=== PATIENT | male | born 1935 | race Caucasian/White ===

== ENCOUNTER 2017-03-16 23:22 | Inpatient (IN) | payer MEDICARE ==
[2017-03-16] MEDS ORDERED: PIPERACILLIN/TAZOBACTAM 3.375 GM VIAL IV ONE (23:43)
[2017-03-16] MEDS ORDERED: VANCOMYCIN HCL INJ 1000 MG VIAL IV ONE (23:43)
[2017-03-16 23:45] LABS: HEMATOCRIT 38.1 % (37.9-51.0); HEMOGLOBIN 12.6 g/dL (13.5-17.0); HGB HCT DIFFERENCE -0.3; MEAN CORPUSCULAR HEMOGLOBIN 34.2 pg (27.0-33.4); MEAN CORPUSCULAR VOLUME 104 fl (80-97); RED BLOOD COUNT 3.68 10^6/uL (4.35-5.55); RED CELL DISTRIBUTION WIDTH 14.1 % (11.5-14.0); WHITE BLOOD COUNT 4.4 10^3/uL (4.0-10.5)
--- NOTE | 2017-03-16 23:46 | ER Document Report ---
ED General - General Stated Complaint: RESPIRATORY DISTRESS Time Seen by Provider: 03/16/17 23:34 TRAVEL OUTSIDE OF THE [place] IN LAST 30 DAYS: No - Related Data Allergies/Adverse Reactions: No Known Allergies Allergy (Verified 08/22/16 13:29) Past Medical History - Social History Smoking Status: Unknown if Ever Smoked Frequency of alcohol use: None Drug Abuse: None Family History: None - Past Medical History Cardiac Medical History: Reports: Hx Hypertension Pulmonary Medical History: Reports: Hx Pneumonia - aspiration Denies: Hx Tuberculosis Neurological Medical History: Reports: Hx Cerebrovascular Accident - 2, rt weakness Psychiatric Medical History: Reports: Hx Depression Past Surgical History: Reports: Hx Orthopedic Surgery. Denies: Hx Pacemaker - Immunizations Hx Diphtheria, Pertussis, Tetanus Vaccination: Yes Hx Pneumococcal Vaccination: 10/07/13 Physical Exam - Vital signs Vitals: Resp Pulse Ox 42 H 70 L 03/16/17 23:23 03/16/17 23:23 Course - Re-evaluation Re-evalutation: 03/16/17 23:44 Patient has what appears to be severe pneumonia on chest x-ray. He has a previous history of aspiration. At baseline is nonverbal due to previous history of strokes and is bedridden. Family is at bedside. Patient's daughter as well as the patient's . I did talk to him at length. Patient's oxygen saturation is 70s and 80s on BiPAP. I informed him that he most likely will not survive long on BiPAP be that his oxygen saturations are poor. Informed him the only option of intubation. I talked to them at length about intubation. I discussed with them about the possibility that the patient may not do well on the ventilator and could potentially not able to come off the ventilator. I I also discussed informed him that the patient could potentially survive this however it is less likely. I did inform them once being placed on ventilator was in the procedure that is involved with it. I did explain to him that this is a life-support type of care. I asked him if this is what the patient would want a long run being that his health is already poor. At this time they do not want to go forth with intubation yet they have not completely ruled out. They are talking to other family members before making a final decision. 03/17/17 00:17 Oxygenation is started to improve. He is now in the 90s. Family still not made up her mind if they want intubation if he needs in the future. - Vital Signs Vital signs: Temp Pulse Resp BP Pulse Ox 97.4 F 79 34 H 98/57 L 100 03/17/17 01:05 03/16/17 23:57 03/17/17 01:05 03/17/17 01:05 03/17/17 01:05 - Laboratory Result Diagrams: 03/16/17 23:30 03/16/17 23:30 Laboratory results interpreted by me: 03/16/17 03/16/17 03/16/17 23:30 23:30 23:30 RBC 3.68 L Hgb 12.6 L MCV 104 H MCH 34.2 H RDW 14.1 H Seg Neuts % (Manual) 37 L Band Neutrophils % 10 H Lymphocytes % (Manual) 48 H Monocytes % (Manual) 1 L Abs Monocytes (Manual) 0.0 L VBG pH Potassium 3.5 L Carbon Dioxide 21 L BUN 36 H Est GFR (Non-Af Amer) 58 L Glucose 196 H Lactic Acid 10.7 H Creatine Kinase Albumin 3.1 L 03/16/17 03/16/17 23:30 23:30 RBC Hgb MCV MCH RDW Seg Neuts % (Manual) Band Neutrophils % Lymphocytes % (Manual) Monocytes % (Manual) Abs Monocytes (Manual) VBG pH 7.24 L Potassium Carbon Dioxide BUN Est GFR (Non-Af Amer) Glucose Lactic Acid Creatine Kinase 173 H Albumin - EKG Interpretation by Me Additional EKG results interpreted by me: 03/17/17 01:07 She is reviewed and interpreted by me. EKG shows normal sinus rhythm with a rate of [address] segment elevation or depression. No ischemic T-wave inversions. NV interval, QRS duration are within normal range. QTc interval is prolonged. - Transfer of Care Notes: 03/17/17 01:35 I continue to have further conversations with the family. His blood pressure has remained and wears from the high 80s systolic to the low 100s. Family says at home his blood pressures usually in the low 100s systolically. He is very thin and I expect his blood pressure does run low however I do think it is running lower than normal due to his underlying illness. Suspect pneumonia based on chest x-ray. He does have a very high lactic acidosis. I informed the family that this suggests that he will not have a good outcome in the long run. His mean arterial pressure has remained above 65 since starting IV fluids. I did inform the family that if his blood pressure continues to drop he may eventually need pressor therapy to keep his blood pressure. I explained to him that this would require central line and explained procedure to them. I did explain to them that this is an invasive procedure. Family still unsure if they would want this done. They will not give me a yes or no answer as to whether they would want this performed if the patient does require it in the future. The still is not sure if she would want the patient intubated in the future or not if he were to require it. Dictation of this chart was performed using voice recognition software; therefore, there may be some unintended grammatical errors. 03/17/17 01:36 Critical Care Note - Critical Care Note Total time excluding time spent on procedures (mins): 45 Comments: Total Critical CARE time spent with patient not including time spent on procedures approximately 45 minutes due to frequent re-evaluations, management of hypoxemia, management of hypotension, discussion with family. Discharge - Discharge Clinical Impression: Metabolic acidosis Pneumonia Qualifiers: Pneumonia type: due to unspecified organism Laterality: bilateral Lung location : lower lobe of lung Qualified Code(s): J18.9 - Pneumonia, unspecified organism Condition: Stable Disposition: ADMITTED INPATIENT Admitting Provider: Hospitalist Unit Admitted: [facility]
[2017-03-16 23:54] LABS: ALANINE AMINOTRANSFERASE 31 U/L (21-72); ALBUMIN 3.1 g/dL (3.5-5.0); ALKALINE PHOSPHATASE 69 U/L (38-126); ANION GAP 19 (5-19); ASPARTATE AMINO TRANSFERASE 45 U/L (17-59); BILIRUBIN,DIRECT 0.2 mg/dL (0.0-0.4); BILIRUBIN,TOTAL 0.5 mg/dL (0.2-1.3); BLOOD UREA NITROGEN 36 mg/dL (7-20); CALCIUM 8.7 mg/dL (8.4-10.2); CARBON DIOXIDE 21 mmol/L (22-30); CHLORIDE 102 mmol/L (98-107); CREATININE RESULT 1.21 mg/dL (0.52-1.25); GLUCOSE 196 mg/dL (75-110); POTASSIUM 3.5 mmol/L (3.6-5.0); SODIUM 141.7 mmol/L (137-145); TOTAL PROTEIN 6.3 g/dL (6.3-8.2)
--- NOTE | 2017-03-17 | RADIOLOGY REPORT (SQ) ---
EXAM DESCRIPTION: CHEST SINGLE VIEW COMPLETED DATE/TIME: 03/16/2017 11:48 pm REASON FOR STUDY: dyspnea COMPARISON: 05/16/2016 EXAM PARAMETERS: NUMBER OF VIEWS: One view. TECHNIQUE: Single frontal radiographic view of the chest acquired. RADIATION DOSE: NA LIMITATIONS: The right costophrenic angle is not included in the field of view. FINDINGS: LUNGS AND PLEURA: Left greater than right perihilar mixed interstitial and airspace opacit ies, most significantly involving the left lower lobe. No pneumothorax. No large pleural effusion e vident. MEDIASTINUM AND HILAR STRUCTURES: No masses. Contour normal. HEART AND VASCULAR STRUCTURES: Heart normal in size. Normal vasculature. BONES: No acute findings. HARDWARE: None in the chest. OTHER: No other significant finding. IMPRESSION: Bilateral perihilar mixed interstitial and airspace opacities demonstrating an apical ba silar gradient in the setting of a normal cardiac silhouette. In the appropriate clinical setting, t his is most consistent with bacterial versus atypical pneumonia. Pulmonary hemorrhage or pulmonary e aden may have a similar appearance. TECHNICAL DOCUMENTATION: JOB ID: [id number]
[2017-03-17 00:14] LABS: BAND NEUTROPHILS % (MANUAL) 10 % (3-5); BASOPHILS % (MANUAL) 0 % (0-2); EOSINOPHILS % (MANUAL) 2 % (0-6); LYMPHOCYTES % (MANUAL) 48 % (13-45); TOTAL CELLS COUNTED 100
[2017-03-17] MEDS ORDERED: NORMAL SALINE 1000 ML 1,000 ML IV PRN (00:17)
[2017-03-17 00:18] LABS: ANISOCYTOSIS SLIGHT; OVALOCYTES SLIGHT; PLATELET CLUMPS PRESENT; POIKILOCYTOSIS 1+
[2017-03-17 00:23] LABS: VENOUS BLOOD BASE EXCESS -4.3 mmol/L; VENOUS BLOOD HCO3 23.8 mmol/L (20-32); VENOUS BLOOD PCO2 56.4 mmHg (35-63); VENOUS BLOOD PH 7.24 (7.30-7.42)
[2017-03-17 01:00] LABS: CREATINE KINASE MB 2.04 ng/mL (<4.55)
[2017-03-17 01:03] LABS: TROPONIN I < 0.012 ng/mL
[2017-03-17] MEDS ORDERED: ACETAMINOPHEN 325 MG TABLET PO PRN (01:34)
[2017-03-17] MEDS ORDERED: GUAIFENESIN SYRP 200 MG/10 ML UDC PO PRN (01:34)
[2017-03-17] MEDS ORDERED: NORMAL SALINE 1000 ML 1,000 ML IV ONE ×2 (01:34→16:10)
[2017-03-17] MEDS ORDERED: VANCOMYCIN HCL 0 MG in DEXTROSE 5%-WATER 250 ML IV NR (02:00)
[2017-03-17 02:30] LABS: MAGNESIUM 1.9 mg/dL (1.6-2.3); PHOSPHORUS 4.1 mg/dL (2.5-4.5)
[2017-03-17 02:40] LABS: ARTERIAL BLOOD BASE EXCESS -2.3 mmol/L; ARTERIAL BLOOD O2 SATURATION 98.3 % (94-98)
--- NOTE | 2017-03-17 03:36 | RADIOLOGY REPORT (SQ) ---
EXAM DESCRIPTION: ABDOMEN 2 VIEWS COMPLETED DATE/TIME: 03/17/2017 3:20 am REASON FOR STUDY: distension COMPARISON: 05/16/2016. Chest x-ray dated 03/16/2017. NUMBER OF VIEWS: Two views. TECHNIQUE: Supine and erect/decubitus radiographic images of the abdomen acquired. LIMITATIONS: None. FINDINGS: FREE AIR: None. No abnormal gas collections. LUNG BASES: Clear. BOWEL GAS PATTERN: Nonobstructive pattern. Diffuse gas throughout the small bowel and colon. Promin ent gas in the stomach. No dilated loops or air fluid levels. CALCIFICATIONS: No suspicious calcifications. SOFT TISSUES: No gross mass or suggestion of organomegaly. HARDWARE: None in the abdomen. BONES: No acute fracture. Degenerative changes in the spine with scoliosis. No worrisome bone lesio ns. OTHER: No other significant finding. IMPRESSION: GENERALIZED ILEUS. TECHNICAL DOCUMENTATION: JOB ID: [id number] [email or web address]- All Rights Reserved
--- NOTE | 2017-03-17 03:46 | PDOC H&P ---
History of Present Illness Admission Date/PCP: 03/17/17 01:34 HELENA THORPE MD Patient complains of: Altered mental status History of Present Illness: AMBROSE BELL is a 81 year old male with complex past medical history of cerebral palsy, CVA, recurrent aspiration pneumonia, dementia and bedbound state. He been in his usual state of health until approximately 6 hours prior to presentation having upper airway sounds concerning for aspiration and seizure -like activity. EMS found him unresponsive with a blood pressure of 64/46 with pulse oximetry in the 60s. In the emergency room he is found to have bilateral pneumonia, acute respiratory failure, metabolic acidosis he started on BiPAP, empiric antibiotics and IV fluids and referred to the hospitalist for admission. Patient's is at bedside verifying no aggressive measures with intubation, central line placement or pressors. Past Medical History Cardiac Medical History: Reports: Hypertension Pulmonary Medical History: Reports: Pneumonia - aspiration, Other - Recurrent aspiration Denies: Tuberculosis Musculoskeltal Medical History: Reports: Other - Profound debility and bedbound state Psychiatric Medical History: Reports: Dementia, Depression Past Surgical History Past Surgical History: Reports: Orthopedic Surgery Denies: Pacemaker Social History Information Source: Relative Lives with: Family Smoking Status: Unknown if Ever Smoked Frequency of Alcohol Use: None Hx Recreational Drug Use: No Drugs: None Hx Prescription Drug Abuse: No - Advance Directive Resuscitation Status: Do Not Resuscitate Family History Family History: CVA, Hypertension Parental Family History Reviewed: Yes Children Family History Reviewed: Yes Sibling(s) Family History Reviewed.: Yes Medication/Allergy Home Medications: Mirtazapine [Remeron] 15 mg PO DAILY 04/11/12 Omeprazole [Prilosec 20 mg Capsule] 20 mg PO DAILY 04/11/12 Simvastatin [Zocor 40 mg Tablet] 40 mg PO QHS 04/11/12 Rivaroxaban [Xarelto 10 mg Tablet] 20 mg PO DAILY 10/18/13 Tamsulosin HCl 1 tab PO DAILY 10/18/13 Losartan Potassium [Cozaar 50 mg Tablet] 50 mg PO DAILY 09/11/14 Levofloxacin [Levaquin 750 mg Tablet] 750 mg PO DAILY #10 tablet 05/19/16 Metronidazole [Flagyl 500 mg Tablet] 500 mg PO Q8 #40 tablet 05/19/16 Allergies/Adverse Reactions: No Known Allergies Allergy (Verified 08/22/16 13:29) Review of Systems ROS unobtainable: Due to mental status Physical Exam Vital Signs: Temp Pulse Resp BP Pulse Ox 98.6 F 79 28 H 97/65 L 92 03/17/17 02:40 03/16/17 23:57 03/17/17 02:40 03/17/17 02:40 03/17/17 02:40 General appearance: PRESENT: no acute distress, disheveled, thin, other - Cachexia with temporal wasting intermittent tracking, unable to follow commands. ABSENT: cooperative Head exam: PRESENT: atraumatic, normocephalic Eye exam: PRESENT: PERRLA, other - Pupils symmetric 2 mm and poorly responsive Ear exam: PRESENT: normal external ear exam Mouth exam: PRESENT: moist, tongue midline Neck exam: ABSENT: carotid bruit, JVD, lymphadenopathy, thyromegaly Respiratory exam: PRESENT: accessory muscle use, prolonged expiratory phas, rales, retraction, rhonchi, tachypnea. ABSENT: stridor Cardiovascular exam: PRESENT: RRR. ABSENT: diastolic murmur, rubs, systolic murmur Pulses: PRESENT: normal dorsalis pedis pul Vascular exam: PRESENT: normal capillary refill GI/Abdominal exam: PRESENT: diminished bowel sounds, distended, hypoactive bowel sounds. ABSENT: ascites, organolmegaly, rebound, rigid Rectal exam: PRESENT: deferred Extremities exam: PRESENT: other - Right sided atrophy and flexion contraction Neurological exam: PRESENT: altered Psychiatric exam: PRESENT: flat affect Skin exam: PRESENT: other - Stage II sacral decubiti Results Laboratory Results: 03/17/17 02:00 Carbonic Acid 1.36 H HCO3/H2CO3 Ratio 17:1 ABG pH 7.34 L ABG pCO2 45.3 H ABG pO2 126.2 H ABG HCO3 23.7 ABG O2 Saturation 98.3 H ABG Base Excess -2.3 FiO2 100% Impressions: Chest X-Ray 03/16/17 23:34 IMPRESSION: Bilateral perihilar mixed interstitial and airspace opacities demonstrating an apical basilar gradient in the setting of a normal cardiac silhouette. In the appropriate clinical setting, this is most consistent with bacterial versus atypical pneumonia. Pulmonary hemorrhage or pulmonary edema may have a similar appearance. Assessment & Plan - Diagnosis (1) Acidosis, metabolic, with respiratory acidosis Is this a current diagnosis for this admission?: YesPlan: Acute respiratory failure with septic shock. Treating underlying pneumonia and hypotension follow-up chemistry consider AV bicarb (2) Ileus Is this a current diagnosis for this admission?: YesPlan: Unclear duration no evidence of obstruction likely secondary to acute process consider NG tube if vomiting. (3) Hypoxia Is this a current diagnosis for this admission?: YesPlan: Secondary to pneumonia supplemental oxygen at 50% with BiPAP. (4) Hypotension Is this a current diagnosis for this admission?: YesPlan: Secondary to sepsis IV fluid challenge as needed patient is a DNR will avoid central line placement and or pressors given patient's chronic comorbidity and family wishes (5) Sepsis Is this a current diagnosis for this admission?: YesPlan: Secondary to pneumonia empiric antibiotics and IV fluid challenge. (6) Encephalopathy acute Is this a current diagnosis for this admission?: YesPlan: Complicated by dementia, seizure disorder and acute illness. Empiric treatment of acute illness resumption of valproic acid and supportive measures (7) Pneumonia Is this a current diagnosis for this admission?: YesPlan: Empiric antibiotics, albuterol and Atrovent, BiPAP. Follow-up CBC and cultures - Time Time Spent: 50 to 70 Minutes - Inpatient Certification Medical Necessity: Need Close Monitoring Due to Risk of Patient Decompensation
[2017-03-17] MEDS: IPRATROPIUM/ALBUTEROL 0.5-2.5 MG/3 ML AMPUL NEB SCH ×4 (04:08→20:06)
[2017-03-17 05:43] LABS: ANION GAP 9 (5-19); BLOOD UREA NITROGEN 36 mg/dL (7-20); CALCIUM 7.8 mg/dL (8.4-10.2); CARBON DIOXIDE 23 mmol/L (22-30); CHLORIDE 110 mmol/L (98-107); CREATINE KINASE 205 U/L (55-170); CREATININE RESULT 1.05 mg/dL (0.52-1.25); GLUCOSE 101 mg/dL (75-110); POTASSIUM 4.1 mmol/L (3.6-5.0); SODIUM 141.8 mmol/L (137-145)
[2017-03-17 05:50] LABS: CREATINE KINASE MB 2.59 ng/mL (<4.55)
[2017-03-17 05:59] LABS: TROPONIN I < 0.012 ng/mL
[2017-03-17] MEDS ORDERED: PIPERACILLIN SODIUM/TAZOBACTAM 4.5 GM in NORMAL SALINE 100 ML IV SCH (06:00)
[2017-03-17] MEDS ORDERED: PIPERACILLIN/TAZOBACTAM 4.5 GM VIAL IV ONE (06:17)
[2017-03-17 07:32] LABS: HEMATOCRIT 35.1 % (37.9-51.0); HEMOGLOBIN 11.7 g/dL (13.5-17.0); MEAN CORPUSCULAR HEMOGLOBIN 34.3 pg (27.0-33.4); MEAN CORPUSCULAR HGB CONC 33.5 g/dL (32.0-36.0); MEAN CORPUSCULAR VOLUME 103 fl (80-97); RED BLOOD COUNT 3.42 10^6/uL (4.35-5.55); RED CELL DISTRIBUTION WIDTH 13.9 % (11.5-14.0)
[2017-03-17 07:50] LABS: BASOPHILS % (MANUAL) 0 % (0-2); EOSINOPHILS % (MANUAL) 0 % (0-6); LYMPHOCYTES % (MANUAL) 34 % (13-45); TOTAL CELLS COUNTED 50
[2017-03-17 07:52] LABS: BAND NEUTROPHILS % (MANUAL) 18 % (3-5)
[2017-03-17 07:54] LABS: OVALOCYTES SLIGHT; POIKILOCYTOSIS SLIGHT; TEAR DROP CELLS SLIGHT
[2017-03-17] MEDS: AZITHROMYCIN 500 MG in DEXTROSE 5%-WATER 250 ML IV SCH (09:33)
[2017-03-17] MEDS: RIVAROXABAN 10 MG TABLET PO SCH (09:40)
--- NOTE | 2017-03-17 09:44 | RADIOLOGY REPORT (SQ) ---
EXAM DESCRIPTION: CHEST SINGLE VIEW COMPLETED DATE/TIME: 03/17/2017 9:34 am REASON FOR STUDY: pna COMPARISON: 03/16/2017 EXAM PARAMETERS: NUMBER OF VIEWS: One view. TECHNIQUE: Single frontal radiographic view of the chest acquired. RADIATION DOSE: NA LIMITATIONS: None. FINDINGS: LUNGS AND PLEURA: Slightly worsened multifocal airspace disease. Pleural spaces clear. MEDIASTINUM AND HILAR STRUCTURES: No masses. Contour normal. HEART AND VASCULAR STRUCTURES: Heart normal in size. Normal vasculature. BONES: No acute findings. HARDWARE: None in the chest. OTHER: No other significant finding. IMPRESSION: WORSENING MULTIFOCAL AIRSPACE DISEASE. TECHNICAL DOCUMENTATION: JOB ID: [id number]
[2017-03-17] MEDS ORDERED: LORAZEPAM INJ 2 MG/1 ML VIAL IV ONE (12:00)
[2017-03-17 12:24] LABS: CREATINE KINASE MB 5.14 ng/mL (<4.55)
[2017-03-17 12:30] LABS: TROPONIN I < 0.012 ng/mL
[2017-03-17] MEDS: PIPERACILLIN SODIUM/TAZOBACTAM 3.375 GM in NORMAL SALINE 100 ML IV SCH ×2 (12:55→18:16)
[2017-03-17] MEDS: NORMAL SALINE 1000 ML 1,000 ML IV PRN (12:55)
[2017-03-17] MEDS ORDERED: PHARMACY COMMUNICATION ORDER MC NR (13:15)
[2017-03-17 13:35] LABS: AMORPHOUS SEDIMENT,URINE TRACE /HPF; APPEARANCE,URINE CLOUDY; BILIRUBIN,URINE NEGATIVE (NEGATIVE); GLUCOSE, URINE NEGATIVE (NEGATIVE); KETONES,URINE NEGATIVE (NEGATIVE); LEUKOCYTE ESTERASE,URINE NEGATIVE (NEGATIVE); NITRITE,URINE NEGATIVE (NEGATIVE); PROTEIN,URINE 30 mg/dL (NEGATIVE); URINE SPECIFIC GRAVITY 1.038; UROBILINOGEN,URINE NEGATIVE mg/dL (<2.0)
[2017-03-17] MEDS: METHYLPREDNISOLONE INJ 40 MG/1 ML SDV IV SCH ×2 (15:33→21:16)
--- NOTE | 2017-03-17 17:37 | PDOC PROGRESS REPORT ---
Subjective Progress Note for:: 03/17/17 Subjective:: Patient is seen with nurse and at bedside. Patient is unable to give review of systems secondary to dementia. Physical Exam Vital Signs: Temp Pulse Resp BP Pulse Ox 98.9 F 90 32 H 93/58 L 90 L 03/17/17 04:14 03/17/17 07:00 03/17/17 04:15 03/17/17 04:14 03/17/17 04:15 Intake & Output 03/16/17 03/17/17 03/18/17 06:59 06:59 06:59 Intake Total 550 Output Total 300 Balance 250 Weight 50.7 kg Exam: GENERAL: Tachypnic, acutely ill appearing, moderate respiratory distress HEENT: temporal muscle wasting, Conjunctiva clear, nonicteric, dry mucous membranes, + JVD to chin, midline trachea, torticollis RESPIRATORY:Tachypnic, accessory muscle use, supraclavicular retractions, coarse bilaterally CARDIAC: Tachycardic, Regular rate and rhythm, no murmurs/gallops/rubs ABDOMEN: Soft, nondistended, nontender, positive bowel sounds, no rebound, no guarding EXTREMETIES: No cyanosis, clubbing or edema NEUROLOGIC: right arm contracted and right leg contracted, awake, muscle spasticity, SKIN: No rash, wounds PSYCH: unable to assess Results Laboratory Results: 03/17/17 05:09 03/17/17 05:09 03/17/17 03/17/17 03/17/17 02:00 05:09 05:09 WBC RBC Hgb Hct MCV MCH MCHC RDW Plt Count Seg Neutrophils % Lymphocytes % Monocytes % Eosinophils % Basophils % Absolute Neutrophils Absolute Lymphocytes Absolute Monocytes Absolute Eosinophils Absolute Basophils Carbonic Acid 1.36 H HCO3/H2CO3 Ratio 17:1 ABG pH 7.34 L ABG pCO2 45.3 H ABG pO2 126.2 H ABG HCO3 23.7 ABG O2 Saturation 98.3 H ABG Base Excess -2.3 FiO2 100% Sodium 141.8 Potassium 4.1 Chloride 110 H Carbon Dioxide 23 Anion Gap 9 BUN 36 H Creatinine 1.05 Est GFR ( Amer) > 60 Est GFR (Non-Af Amer) > 60 Glucose 101 Lactic Acid 3.3 H Calcium 7.8 L 03/17/17 05:09 WBC 2.0 L D RBC 3.42 L Hgb 11.7 L Hct 35.1 L MCV 103 H MCH 34.3 H MCHC 33.5 RDW 13.9 Plt Count 150 Seg Neutrophils % Not Reportable Lymphocytes % Not Reportable Monocytes % Not Reportable Eosinophils % Not Reportable Basophils % Not Reportable Absolute Neutrophils Not Reportable Absolute Lymphocytes Not Reportable Absolute Monocytes Not Reportable Absolute Eosinophils Not Reportable Absolute Basophils Not Reportable Carbonic Acid HCO3/H2CO3 Ratio ABG pH ABG pCO2 ABG pO2 ABG HCO3 ABG O2 Saturation ABG Base Excess FiO2 Sodium Potassium Chloride Carbon Dioxide Anion Gap BUN Creatinine Est GFR ( Amer) Est GFR (Non-Af Amer) Glucose Lactic Acid Calcium 03/17/17 03/17/17 05:09 05:09 Creatine Kinase 205 H CK-MB (CK-2) 2.59 Troponin I < 0.012 Impressions: Chest X-Ray 03/16/17 23:34 IMPRESSION: Bilateral perihilar mixed interstitial and airspace opacities demonstrating an apical basilar gradient in the setting of a normal cardiac silhouette. In the appropriate clinical setting, this is most consistent with bacterial versus atypical pneumonia. Pulmonary hemorrhage or pulmonary edema may have a similar appearance. Abdomen X-Ray 03/17/17 02:40 IMPRESSION: GENERALIZED ILEUS. Assessment & Plan - Diagnosis (1) Sepsis Qualifiers: Sepsis type: sepsis due to unspecified organism Qualified Code(s): A41.9 - Sepsis, unspecified organism Is this a current diagnosis for this admission?: YesPlan: Patient on Vancomycin, Zosyn, and Azithromycin. Pending cultures. (2) Pneumonia Qualifiers: Laterality: bilateral Lung location: unspecified part of lung Is this a current diagnosis for this admission?: YesPlan: Patient with multifocal pneumonia. Likely a gram negative pneumonia secondary to acute and chronic aspiration. Patient is on Bipap at F[facility] 70% sating 93% when I see him. Th (3) ARDS (adult respiratory distress syndrome) Is this a current diagnosis for this admission?: YesPlan: Patient meets criteria based on fluffy infiltrates in all lobes, PaO2/FiO2 ratio of 126 (moderate ards). While other causes have not been ruled out such as IAEP or [employer], but unlikely. His insult occured approximately 48 hours with aspiration. (4) Acidosis, metabolic, with respiratory acidosis Is this a current diagnosis for this admission?: Yes (5) Encephalopathy acute Is this a current diagnosis for this admission?: YesPlan: Secondary to underlying sepsis and dementia reports he has barely spoken in the past year. (6) Hypotension Is this a current diagnosis for this admission?: YesPlan: Secondary to sepsis. Family declines a line and pressors. (7) Ileus Is this a current diagnosis for this admission?: Yes - Time Time Spent with patient: 35 or more minutes Medications reviewed and adjusted accordingly: Yes - Plan Summary Plan Summary: Have discussed with family the poor prognosis associated with his condition and they are aware and understand. Patient remains a DNR/DNI.
[2017-03-17 18:09] LABS: CREATINE KINASE MB 6.07 ng/mL (<4.55)
[2017-03-17 18:15] LABS: TROPONIN I < 0.012 ng/mL
[2017-03-17] MEDS: LORAZEPAM INJ 2 MG/1 ML VIAL IV PRN (18:42)
[2017-03-17] MEDS: VANCOMYCIN HCL 750 MG in DEXTROSE 5%-WATER 250 ML IV SCH (21:16)
[2017-03-17] MEDS: SIMVASTATIN 40 MG TABLET PO SCH (21:22)
[2017-03-18] MEDS: PIPERACILLIN SODIUM/TAZOBACTAM 3.375 GM in NORMAL SALINE 100 ML IV SCH ×4 (00:14→17:17)
[2017-03-18] MEDS: NORMAL SALINE 1000 ML 1,000 ML IV PRN (00:14)
[2017-03-18] MEDS: IPRATROPIUM/ALBUTEROL 0.5-2.5 MG/3 ML AMPUL NEB SCH ×4 (02:23→20:32)
[2017-03-18] MEDS: LORAZEPAM INJ 2 MG/1 ML VIAL IV PRN (04:24)
[2017-03-18] MEDS: METHYLPREDNISOLONE INJ 40 MG/1 ML SDV IV SCH ×3 (05:37→21:46)
[2017-03-18 06:04] LABS: ANION GAP 9 (5-19); BLOOD UREA NITROGEN 37 mg/dL (7-20); CARBON DIOXIDE 22 mmol/L (22-30); CHLORIDE 115 mmol/L (98-107); CREATININE RESULT 1.01 mg/dL (0.52-1.25); GLUCOSE 112 mg/dL (75-110); MAGNESIUM 1.7 mg/dL (1.6-2.3); POTASSIUM 3.6 mmol/L (3.6-5.0)
[2017-03-18 07:55] LABS: ABSOLUTE LYMPHOCYTES (AUTO) 0.8 10^3/uL (0.5-4.7); ABSOLUTE MONOCYTES (AUTO) 0.3 10^3/uL (0.1-1.4); ABSOLUTE NEUT (AUTO) 6.1 10^3/uL (1.7-8.2); BASOPHILS % (AUTO) 0.2 % (0-2); HEMATOCRIT 25.5 % (37.9-51.0); HGB HCT DIFFERENCE 0.3; LYMPHOCYTES % (AUTO) 11.2 % (13-45); MEAN CORPUSCULAR HEMOGLOBIN 34.6 pg (27.0-33.4); MEAN CORPUSCULAR HGB CONC 33.8 g/dL (32.0-36.0); MEAN CORPUSCULAR VOLUME 103 fl (80-97); MONOCYTES % (AUTO) 4.4 % (3-13); RED BLOOD COUNT 2.48 10^6/uL (4.35-5.55); RED CELL DISTRIBUTION WIDTH 14.2 % (11.5-14.0); SEGMENTED NEUTROPHILS % (AUTO) 84.2 % (42-78)
[2017-03-18 08:49] LABS: HEMOGLOBIN 8.6 g/dL (13.5-17.0); WHITE BLOOD COUNT 7.2 10^3/uL (4.0-10.5)
--- NOTE | 2017-03-18 09:31 | EKG REPORT ---
SEVERITY:- BORDERLINE ECG - SINUS RHYTHM BORDERLINE PROLONGED QT INTERVAL : Confirmed by: Ángela Sheehan 18-Mar-2017 09:31:15
[2017-03-18] MEDS: AZITHROMYCIN 500 MG in DEXTROSE 5%-WATER 250 ML IV SCH (09:45)
[2017-03-18] MEDS ORDERED: LEVETIRACETAM 500 MG in NORMAL SALINE 100 ML IV SCH (10:00)
[2017-03-18] MEDS: RIVAROXABAN 10 MG TABLET PO SCH (10:40)
[2017-03-18] MEDS: LEVETIRACETAM 500 MG/NACL-ISO 500 MG/100 ML RTUPB IV SCH ×2 (11:24→21:47)
[2017-03-18 12:41] LABS: FIBRINOGEN 407 mg/dL (209-497); PARTIAL THROMBOPLASTIN TIME 38.7 SEC (23.5-35.8)
[2017-03-18] MEDS: DEXTROSE 5%-1/2 NORMAL SALINE 1,000 ML IV PRN ×2 (13:21→21:46)
--- NOTE | 2017-03-18 19:33 | PDOC PROGRESS REPORT ---
Subjective Progress Note for:: 03/18/17 Subjective:: Patient is seen with nurse at bedside. Patient is unable to give review of systems secondary to dementia. Physical Exam Vital Signs: Temp Pulse Resp BP Pulse Ox 98.3 F 95 35 H 112/49 L 94 03/18/17 15:27 03/18/17 15:27 03/18/17 16:25 03/18/17 15:27 03/18/17 15:27 Intake & Output 03/17/17 03/18/17 03/19/17 06:59 06:59 06:59 Intake Total 550 3750 2100 Output Total 300 635 300 Balance 250 3115 1800 Weight 50.7 kg 50.5 kg Exam: GENERAL: acutely ill appearing, no acute respiratory distress HEENT: temporal muscle wasting, Conjunctiva clear, nonicteric, dry mucous membranes, no JVD, midline trachea, torticollis RESPIRATORY:depressed respirations, accessory muscle use, supraclavicular retractions, coarse bilaterally CARDIAC: Tachycardic, Regular rate and rhythm, no murmurs/gallops/rubs ABDOMEN: Soft, nondistended, nontender, positive bowel sounds, no rebound, no guarding EXTREMETIES: No cyanosis, clubbing or edema NEUROLOGIC: right arm contracted and right leg contracted, responsive only to deep stimuli, muscle spasticity, SKIN: No rash, wounds PSYCH: unable to assess Results Laboratory Results: 03/18/17 07:23 03/18/17 05:38 03/18/17 03/18/17 03/18/17 05:38 05:38 07:23 WBC Cancelled 7.2 D RBC Cancelled 2.48 L Hgb Cancelled 8.6 L D Hct Cancelled 25.5 L MCV Cancelled 103 H MCH Cancelled 34.6 H MCHC Cancelled 33.8 RDW Cancelled 14.2 H Plt Count Cancelled 98 L Seg Neutrophils % Cancelled 84.2 H Lymphocytes % Cancelled 11.2 L Monocytes % Cancelled 4.4 Eosinophils % Cancelled 0.0 Basophils % Cancelled 0.2 Absolute Neutrophils Cancelled 6.1 Absolute Lymphocytes Cancelled 0.8 Absolute Monocytes Cancelled 0.3 Absolute Eosinophils Cancelled 0.0 Absolute Basophils Cancelled 0.0 Sodium 146.0 H Potassium 3.6 Chloride 115 H Carbon Dioxide 22 Anion Gap 9 BUN 37 H Creatinine 1.01 Est GFR ( Amer) > 60 Est GFR (Non-Af Amer) > 60 Glucose 112 H Calcium 8.0 L Magnesium 1.7 03/17/17 03/17/17 03/17/17 05:09 05:09 11:32 Creatine Kinase 205 H 582 H CK-MB (CK-2) 2.59 Troponin I < 0.012 03/17/17 03/17/17 03/17/17 11:32 17:32 17:32 Creatine Kinase 688 H CK-MB (CK-2) 5.14 H 6.07 H Troponin I < 0.012 < 0.012 Impressions: Chest X-Ray 03/17/17 00:00 IMPRESSION: WORSENING MULTIFOCAL AIRSPACE DISEASE. Abdomen X-Ray 03/17/17 02:40 IMPRESSION: GENERALIZED ILEUS. Assessment & Plan - Diagnosis (1) Sepsis Qualifiers: Sepsis type: sepsis due to unspecified organism Qualified Code(s): A41.9 - Sepsis, unspecified organism Is this a current diagnosis for this admission?: YesPlan: Patient on Vancomycin, Zosyn, and Azithromycin. Pending cultures. (2) Pneumonia Qualifiers: Laterality: bilateral Lung location: unspecified part of lung Is this a current diagnosis for this admission?: YesPlan: Patient with multifocal pneumonia. Likely a gram negative pneumonia secondary to acute and chronic aspiration. Patient on broad-spectrum antibiotic coverage, scheduled nebulized treatments. Currently on IV vancomycin, Zosyn, and azithromycin. Day #2 for these medications. (3) ARDS (adult respiratory distress syndrome) Is this a current diagnosis for this admission?: YesPlan: Patient meets criteria based on fluffy infiltrates in all lobes, PaO2/FiO2 ratio of 126 (moderate ards). While other causes have not been ruled out such as IAEP or [employer], but unlikely. His insult occured approximately 48 hours with aspiration. BiPAP support as tolerated. Discussed with family again the possibility of comfort measures. (4) Acidosis, metabolic, with respiratory acidosis Is this a current diagnosis for this admission?: Yes (5) Encephalopathy acute Is this a current diagnosis for this admission?: Yes (6) Hypotension Is this a current diagnosis for this admission?: Yes (7) Ileus Is this a current diagnosis for this admission?: Yes - Time Time Spent with patient: 35 or more minutes Medications reviewed and adjusted accordingly: Yes
[2017-03-18] MEDS: VANCOMYCIN HCL 750 MG in DEXTROSE 5%-WATER 250 ML IV SCH (22:22)
[2017-03-18] MEDS: SIMVASTATIN 40 MG TABLET PO SCH (22:29)
--- NOTE | 2017-03-18 22:41 | Palliative Consultation Report ---
Consultation From:: [facility] HPI: Palliative care visit 11:10 Am- 12:20 PM Appreciate palliative care consult with this 81 year old man who has had an extensive medical history of cerebral palsy, CVA, dementia and recurrent aspiration pneumonia. His has cared for him at home for years, with the help of her very realistic and supportive children. Their son lives with them to help with the physical lifting and other aspects of care. Just a few hours before admission, Mr. Mast apparently aspirated and had a seizure. His states this is the worst aspiration he has had and he remains on bipap and barely responsive. He does not appear to be in any pain but his labs indicate infection and with his previous frail state, this certainly reduces his baseline status. Dr. Aguilar has spoken with the family at length to explain his physical status before I arrived. I was able to speak with his , two daughters, son and two cousins along with a close friend of the family. They are all in agreement that Mr. Mast would not want his life extended with artificial ventilation or tube feedings. His is struggling with the thought of not feeding him, but we discussed the reality of the problems with tube feedings at length and repeatedly as each new family member arrived. She understands that tube feeding will not totally prevent aspiration. If her regains consciousness enough, he can have pleasure feedings. His children reassured her that her would not want to be kept alive like that. We discussed hospice support at home, since Mrs. Mast wants to take him back home. We discussed the possibility of hospice care center if he doesn't improve. At this point it is difficult to know how much he will regain as he recieves antibiotics and steroids. However, the family is very aware that he will not be any better than his previous baseline, and probably not that good. They say he was a very vital and active man and would not like to be like this if he had a choice. Family understands that they will be making choices for care in accord with what they think Mr. Mast would want, not necessarily what they might want. His is very agreeable to doing this although she realizes it might bring her more grief and anxiety. They want patient to be comfortable and dignified and are appreciative of the care of the doctors and staff. Onset: Just prior to arrival Onset/Duration: Sudden Past Medical History(Consults) - General Information Source: Relative, [facility] Records Home Medications: Cholecalciferol (Vitamin D3) [Vitamin D3 2000 unit Tablet] 2,000 unit PO DAILY 03/17/17 Clorazepate Dipotassium 0.5 tab PO Q12 03/17/17 Cyanocobalamin (Vitamin B-12) [Vitamin B-12] 1,000 mcg PO DAILY 03/17/17 Losartan Potassium [Cozaar 50 mg Tablet] 50 mg PO QPM 03/17/17 Mirtazapine [Remeron 15 mg Tablet] 15 mg PO QHS 03/17/17 Omeprazole 20 mg PO DAILY 03/17/17 Polyethylene Glycol 3350 [Miralax] 17 gm PO DAILYP PRN 03/17/17 Rivaroxaban [Xarelto] 20 mg PO QPM 03/17/17 Simvastatin 40 mg PO QHS 03/17/17 Valproic Acid (As Sodium Salt) [Valproic Acid] 750 mg PO QHS 03/17/17 Vitamin B Complex [Super B Complex] 1 tab PO DAILY 03/17/17 Allergies/Adverse Reactions: No Known Allergies Allergy (Verified 08/22/16 13:29) - Social History Lives with: Family Family History: CVA, Hypertension Parental Family History Reviewed: No Children Family History Reviewed: No Sibling(s) Family History Reviewed.: No Smoking Status: Never Smoker Frequency of Alcohol Use: None Hx Recreational Drug Use: No Drugs: None Hx Prescription Drug Abuse: No - Past Medical History Cardiac Medical History: Reports: Hx Hypertension Pulmonary Medical History: Reports: Hx Pneumonia - aspiration, Other - Recurrent aspiration Denies: Hx Tuberculosis Neurological Medical History: Reports: Hx Cerebrovascular Accident - 2, rt weakness Malignancy Medical History: Reports None Musculoskeltal Medical History: Reports Other - Profound debility and bedbound state Psychiatric Medical History: Reports: Hx Dementia, Hx Depression - Surgical History Past Surgical History: Reports: Hx Orthopedic Surgery. Denies: Hx Pacemaker Review of systems ROS unobtainable: due to mental statu Ojective:Exam Vital Signs: Temp Pulse Resp BP Pulse Ox 98.0 F 52 L 33 H 118/54 L 99 03/18/17 19:51 03/18/17 20:30 03/18/17 20:30 03/18/17 19:51 03/18/17 19:51 Intake & Output 03/17/17 03/18/17 03/19/17 06:59 06:59 06:59 Intake Total 550 3750 2100 Output Total 300 635 300 Balance 250 3115 1800 Weight 50.7 kg 50.5 kg - General General Appearance: Unresponsive In distress: None - Neck Neck: Normal - Respiratory Respiratory Status: Labored Breath sounds: Rhonchi Respiratory Notes: ON Bipap - Cardiovascular Pulses: Normal: Radial - Extremities Upper extremity: Normal color - Neurological Cognition: Other - Non reactive to verbal or tactile stimuli Objective-Diagnostic Laboratory: 03/18/17 07:23 03/18/17 05:38 03/18/17 03/18/17 03/18/17 05:38 05:38 07:23 WBC Cancelled 7.2 D RBC Cancelled 2.48 L Hgb Cancelled 8.6 L D Hct Cancelled 25.5 L MCV Cancelled 103 H MCH Cancelled 34.6 H MCHC Cancelled 33.8 RDW Cancelled 14.2 H Plt Count Cancelled 98 L Seg Neutrophils % Cancelled 84.2 H Lymphocytes % Cancelled 11.2 L Monocytes % Cancelled 4.4 Eosinophils % Cancelled 0.0 Basophils % Cancelled 0.2 Absolute Neutrophils Cancelled 6.1 Absolute Lymphocytes Cancelled 0.8 Absolute Monocytes Cancelled 0.3 Absolute Eosinophils Cancelled 0.0 Absolute Basophils Cancelled 0.0 Sodium 146.0 H Potassium 3.6 Chloride 115 H Carbon Dioxide 22 Anion Gap 9 BUN 37 H Creatinine 1.01 Est GFR ( Amer) > 60 Est GFR (Non-Af Amer) > 60 Glucose 112 H Calcium 8.0 L Magnesium 1.7 03/17/17 03/17/17 03/17/17 05:09 05:09 11:32 Creatine Kinase 205 H 582 H CK-MB (CK-2) 2.59 Troponin I < 0.012 03/17/17 03/17/17 03/17/17 11:32 17:32 17:32 Creatine Kinase 688 H CK-MB (CK-2) 5.14 H 6.07 H Troponin I < 0.012 < 0.012 Plan and Recommendation Plan and Recommendation: As above. Discussed options of feeding tube s comfort care. patient already has DNR and family has instructed no heroic measures. Discussed care at hospital, hospice care center or home with hospice to support for symptom management and etc. Family united in their ideas of wanting comfort and dignity for their loved one. Children supportive of their mother. Will see how patient responds to treatments initiated for a few days and let them discuss care options amongst themselves. Dr. Aguilar is continuing antibiotic and stroid treatments for optimum recovery, but patient is very frail and physically tired. Family members have my cell phone for questions or needs, will follow in a few days and will ask hospice liason to follow also. Thank you for opportunity to participate in care and meet this very respectful and loving family. - Time Spent with Patient Time spent with patient: 60 to 90 Minutes Time: 75 minutes with patient , family and conference with doctor Greater then 50% spent on Counseling & Coordination of Care: 60 min
[2017-03-19] MEDS: PIPERACILLIN SODIUM/TAZOBACTAM 3.375 GM in NORMAL SALINE 100 ML IV SCH ×4 (00:27→18:12)
[2017-03-19] MEDS: IPRATROPIUM/ALBUTEROL 0.5-2.5 MG/3 ML AMPUL NEB SCH ×4 (02:40→19:33)
[2017-03-19] MEDS: DEXTROSE 5%-1/2 NORMAL SALINE 1,000 ML IV PRN (05:17)
[2017-03-19] MEDS: METHYLPREDNISOLONE INJ 40 MG/1 ML SDV IV SCH ×3 (05:21→21:49)
[2017-03-19 06:45] LABS: ANION GAP 5 (5-19); BLOOD UREA NITROGEN 33 mg/dL (7-20); CALCIUM 8.1 mg/dL (8.4-10.2); CARBON DIOXIDE 24 mmol/L (22-30); CHLORIDE 113 mmol/L (98-107); CREATININE RESULT 0.88 mg/dL (0.52-1.25); GLUCOSE 166 mg/dL (75-110); POTASSIUM 3.3 mmol/L (3.6-5.0); SODIUM 142.2 mmol/L (137-145)
[2017-03-19 07:07] LABS: ABSOLUTE LYMPHOCYTES (AUTO) 0.6 10^3/uL (0.5-4.7); ABSOLUTE MONOCYTES (AUTO) 0.3 10^3/uL (0.1-1.4); ABSOLUTE NEUT (AUTO) 5.5 10^3/uL (1.7-8.2); BASOPHILS % (AUTO) 0.1 % (0-2); HEMATOCRIT 22.8 % (37.9-51.0); HGB HCT DIFFERENCE 0.3; LYMPHOCYTES % (AUTO) 9.5 % (13-45); MEAN CORPUSCULAR HEMOGLOBIN 34.2 pg (27.0-33.4); MEAN CORPUSCULAR VOLUME 101 fl (80-97); MONOCYTES % (AUTO) 4.4 % (3-13); RED BLOOD COUNT 2.26 10^6/uL (4.35-5.55); WHITE BLOOD COUNT 6.4 10^3/uL (4.0-10.5)
[2017-03-19 08:11] LABS: HEMOGLOBIN 7.7 g/dL (13.5-17.0)
[2017-03-19] MEDS ORDERED: NORMAL SALINE 250 ML IV PRN ×2 (08:14)
[2017-03-19 09:08] LABS: PATH REVIEW PATHOLOGIST REVIEWED
[2017-03-19] MEDS: LEVETIRACETAM 500 MG/NACL-ISO 500 MG/100 ML RTUPB IV SCH ×2 (11:38→21:49)
[2017-03-19] MEDS: AZITHROMYCIN 500 MG in DEXTROSE 5%-WATER 250 ML IV SCH (11:41)
--- NOTE | 2017-03-19 17:24 | PDOC PROGRESS REPORT ---
Subjective Progress Note for:: 03/19/17 Subjective:: Patient is basically nonverbal at baseline according to family. I have had extensive family discussion today with patient's and children. It seems to be the consensus of the family to continue treating infection and continued nonaggressive measures. Family unanimously does not want aggressive measures such as artificial nutrition, resuscitation, life support. Physical Exam Vital Signs: Temp Pulse Resp BP Pulse Ox 97.7 F 66 31 H 124/61 98 03/19/17 16:06 03/19/17 16:06 03/19/17 16:06 03/19/17 16:06 03/19/17 16:06 Intake & Output 03/18/17 03/19/17 03/20/17 06:59 06:59 06:59 Intake Total 3750 5150 0 Output Total 635 1050 500 Balance 3115 4100 -500 Weight 50.5 kg 50.4 kg GENERAL: No acute distress HEENT: Conjunctiva clear, nonicteric, moist mucous membranes, no JVD, midline trachea RESPIRATORY: Bilateral wheezes/rhonchi, good air excursion CARDIAC: Regular rate and rhythm, no murmurs/gallops/rubs ABDOMEN: Soft, nondistended, nontender, positive bowel sounds, no rebound, no guarding EXTREMETIES: No edema, cyanosis, clubbing NEUROLOGIC: Alert, nonverbal, diffuse contractures SKIN: No rash, wounds Results Laboratory Results: 03/19/17 05:53 03/19/17 05:53 03/17/17 03/19/17 03/19/17 05:09 05:53 05:53 WBC 2.0 L D 6.4 RBC 3.42 L 2.26 L Hgb 11.7 L 7.7 L Hct 35.1 L 22.8 L MCV 103 H 101 H MCH 34.3 H 34.2 H MCHC 33.5 34.0 RDW 13.9 14.0 Plt Count 150 85 L Seg Neutrophils % 86.0 H Lymphocytes % 9.5 L Monocytes % 4.4 Eosinophils % 0.0 Basophils % 0.1 Absolute Neutrophils 5.5 Absolute Lymphocytes 0.6 Absolute Monocytes 0.3 Absolute Eosinophils 0.0 Absolute Basophils 0.0 Sodium 142.2 Potassium 3.3 L Chloride 113 H Carbon Dioxide 24 Anion Gap 5 BUN 33 H Creatinine 0.88 Est GFR ( Amer) > 60 Est GFR (Non-Af Amer) > 60 Glucose 166 H Calcium 8.1 L Blood Type Antibody Screen 03/19/17 08:33 WBC RBC Hgb Hct MCV MCH MCHC RDW Plt Count Seg Neutrophils % Lymphocytes % Monocytes % Eosinophils % Basophils % Absolute Neutrophils Absolute Lymphocytes Absolute Monocytes Absolute Eosinophils Absolute Basophils Sodium Potassium Chloride Carbon Dioxide Anion Gap BUN Creatinine Est GFR ( Amer) Est GFR (Non-Af Amer) Glucose Calcium Blood Type AB POSITIVE Antibody Screen NEGATIVE 03/17/17 12:30 Hester Catheter Urine Culture - Final NO GROWTH 2 DAYS 03/17/17 03/17/17 03/17/17 05:09 05:09 11:32 Creatine Kinase 205 H 582 H CK-MB (CK-2) 2.59 Troponin I < 0.012 03/17/17 03/17/17 03/17/17 11:32 17:32 17:32 Creatine Kinase 688 H CK-MB (CK-2) 5.14 H 6.07 H Troponin I < 0.012 < 0.012 Impressions: Chest X-Ray 03/17/17 00:00 IMPRESSION: WORSENING MULTIFOCAL AIRSPACE DISEASE. Abdomen X-Ray 03/17/17 02:40 IMPRESSION: GENERALIZED ILEUS. Assessment & Plan - Diagnosis (1) Acute hypoxemic respiratory failure Is this a current diagnosis for this admission?: YesPlan: Patient currently on BiPAP for respiratory support. We will work towards transitioning him to nasal cannula oxygen as he is now comfort measures only (2) Sepsis Qualifiers: Sepsis type: sepsis due to unspecified organism Qualified Code(s): A41.9 - Sepsis, unspecified organism Is this a current diagnosis for this admission?: Yes (3) Pneumonia Qualifiers: Laterality: bilateral Lung location: unspecified part of lung Is this a current diagnosis for this admission?: YesPlan: High probability of gram-negative organism given aspiration risk. Continue IV Zosyn and IV azithromycin. Discontinue vancomycin (4) Cerebrovascular accident (CVA) Is this a current diagnosis for this admission?: YesPlan: Patient has had multiple prior strokes. He has been on Xarelto but this will have to be stopped secondary to anemia requiring transfusion and severe general debility. (5) Anemia Is this a current diagnosis for this admission?: YesPlan: Transfuse 1 unit PRBC. Patient has now been made comfort measures only. I will discontinue further lab work. (6) Do not resuscitate Is this a current diagnosis for this admission?: Yes - Time Time Spent with patient: 35 or more minutes
[2017-03-19] MEDS: SIMVASTATIN 40 MG TABLET PO SCH (21:45)
[2017-03-20] MEDS: PIPERACILLIN SODIUM/TAZOBACTAM 3.375 GM in NORMAL SALINE 100 ML IV SCH ×4 (00:17→17:32)
[2017-03-20] MEDS: DEXTROSE 5%-1/2 NORMAL SALINE 1,000 ML IV PRN (00:17)
[2017-03-20] MEDS: IPRATROPIUM/ALBUTEROL 0.5-2.5 MG/3 ML AMPUL NEB SCH ×4 (02:30→20:56)
[2017-03-20] MEDS: METHYLPREDNISOLONE INJ 40 MG/1 ML SDV IV SCH ×2 (11:49→22:14)
[2017-03-20] MEDS: LEVETIRACETAM 500 MG/NACL-ISO 500 MG/100 ML RTUPB IV SCH ×2 (11:50→22:13)
[2017-03-20] MEDS: AZITHROMYCIN 500 MG in DEXTROSE 5%-WATER 250 ML IV SCH (13:19)
--- NOTE | 2017-03-20 16:19 | PDOC PROGRESS REPORT ---
Subjective Progress Note for:: 03/20/17 Subjective:: Patient's family and nursing staff indicate that BiPAP taking patient uncomfortable and that he is frequently attempting to pull this off. I cannot obtain review of systems from patient secondary to nonverbal state. Physical Exam Vital Signs: Temp Pulse Resp BP Pulse Ox 97.7 F 62 36 H 138/68 H 96 03/19/17 17:06 03/20/17 14:17 03/20/17 14:17 03/19/17 17:06 03/20/17 14:17 Intake & Output 03/19/17 03/20/17 03/21/17 06:59 06:59 06:59 Intake Total 5150 3100 0 Output Total 1050 1400 200 Balance 4100 1700 -200 Weight 50.4 kg 60.3 kg GENERAL: No acute distress HEENT: Conjunctiva clear, nonicteric, moist mucous membranes, no JVD, midline trachea RESPIRATORY: Bilateral wheezes/rhonchi, good air excursion CARDIAC: Regular rate and rhythm, no murmurs/gallops/rubs ABDOMEN: Soft, nondistended, nontender, positive bowel sounds, no rebound, no guarding EXTREMETIES: No edema, cyanosis, clubbing NEUROLOGIC: Alert, nonverbal, diffuse contractures SKIN: No rash, wounds Results Laboratory Results: 03/19/17 05:53 03/19/17 05:53 03/19/17 08:33 Blood Type AB POSITIVE Antibody Screen NEGATIVE 03/17/17 03/17/17 03/17/17 05:09 05:09 11:32 Creatine Kinase 205 H 582 H CK-MB (CK-2) 2.59 Troponin I < 0.012 03/17/17 03/17/17 03/17/17 11:32 17:32 17:32 Creatine Kinase 688 H CK-MB (CK-2) 5.14 H 6.07 H Troponin I < 0.012 < 0.012 Impressions: Chest X-Ray 03/17/17 00:00 IMPRESSION: WORSENING MULTIFOCAL AIRSPACE DISEASE. Abdomen X-Ray 03/17/17 02:40 IMPRESSION: GENERALIZED ILEUS. Assessment & Plan - Diagnosis (1) Acute hypoxemic respiratory failure Is this a current diagnosis for this admission?: YesPlan: Discontinue BiPAP and start patient on nasal cannula oxygen for comfort. Patient has now been made comfort measures only by family. Palliative care consult appreciated. Patient will likely need to go to inpatient hospice. (2) Sepsis Qualifiers: Sepsis type: sepsis due to unspecified organism Qualified Code(s): A41.9 - Sepsis, unspecified organism Is this a current diagnosis for this admission?: Yes (3) Pneumonia Qualifiers: Laterality: bilateral Lung location: unspecified part of lung Is this a current diagnosis for this admission?: YesPlan: High probability of gram-negative organism given aspiration risk. Continue IV Zosyn and IV azithromycin. (4) Cerebrovascular accident (CVA) Is this a current diagnosis for this admission?: Yes (5) Anemia Is this a current diagnosis for this admission?: Yes (6) Do not resuscitate Is this a current diagnosis for this admission?: Yes - Time Time Spent with patient: 25-34 minutes Anticipated discharge: Hospice Within: when bed available
[2017-03-20] MEDS: SIMVASTATIN 40 MG TABLET PO SCH (22:10)
[2017-03-20] MEDS: MORPHINE SULFATE 10 MG/ML INJ IV PRN (22:47)
[2017-03-21] MEDS: PIPERACILLIN SODIUM/TAZOBACTAM 3.375 GM in NORMAL SALINE 100 ML IV SCH ×5 (00:19→23:33)
[2017-03-21] MEDS: IPRATROPIUM/ALBUTEROL 0.5-2.5 MG/3 ML AMPUL NEB SCH ×4 (02:21→20:14)
[2017-03-21] MEDS: METHYLPREDNISOLONE INJ 40 MG/1 ML SDV IV SCH ×2 (10:06→22:04)
[2017-03-21] MEDS: LEVETIRACETAM 500 MG/NACL-ISO 500 MG/100 ML RTUPB IV SCH ×2 (10:06→22:04)
[2017-03-21] MEDS: AZITHROMYCIN 500 MG in DEXTROSE 5%-WATER 250 ML IV SCH (10:43)
--- NOTE | 2017-03-21 11:55 | PDOC PROGRESS REPORT ---
Subjective Progress Note for:: 03/21/17 Subjective:: No new issues. I cannot obtain review of systems from patient secondary to nonverbal state. Physical Exam Vital Signs: Temp Pulse Resp BP Pulse Ox 97.2 F 71 31 H 141/72 H 91 L 03/21/17 07:14 03/21/17 08:45 03/21/17 08:45 03/21/17 07:14 03/21/17 08:45 Intake & Output 03/20/17 03/21/17 03/22/17 06:59 06:59 06:59 Intake Total 3100 900 Output Total 1400 1550 Balance 1700 -650 Weight 60.3 kg 60.4 kg GENERAL: No acute distress HEENT: Conjunctiva clear, nonicteric, moist mucous membranes, no JVD, midline trachea RESPIRATORY: Bilateral wheezes/rhonchi, good air excursion CARDIAC: Regular rate and rhythm, no murmurs/gallops/rubs ABDOMEN: Soft, nondistended, nontender, positive bowel sounds, no rebound, no guarding EXTREMETIES: No edema, cyanosis, clubbing NEUROLOGIC: Alert, nonverbal, diffuse contractures SKIN: No rash, wounds Results Laboratory Results: 03/19/17 05:53 03/19/17 05:53 03/17/17 03/17/17 03/17/17 05:09 05:09 11:32 Creatine Kinase 205 H 582 H CK-MB (CK-2) 2.59 Troponin I < 0.012 03/17/17 03/17/17 03/17/17 11:32 17:32 17:32 Creatine Kinase 688 H CK-MB (CK-2) 5.14 H 6.07 H Troponin I < 0.012 < 0.012 Impressions: Chest X-Ray 03/17/17 00:00 IMPRESSION: WORSENING MULTIFOCAL AIRSPACE DISEASE. Abdomen X-Ray 03/17/17 02:40 IMPRESSION: GENERALIZED ILEUS. Assessment & Plan - Diagnosis (1) Acute hypoxemic respiratory failure Is this a current diagnosis for this admission?: YesPlan: Discontinue BiPAP and start patient on nasal cannula oxygen for comfort. Patient has now been made comfort measures only by family. Palliative care consult appreciated. Patient will likely need to go to inpatient hospice. (2) Sepsis Qualifiers: Sepsis type: sepsis due to unspecified organism Qualified Code(s): A41.9 - Sepsis, unspecified organism Is this a current diagnosis for this admission?: Yes (3) Pneumonia Qualifiers: Laterality: bilateral Lung location: unspecified part of lung Is this a current diagnosis for this admission?: YesPlan: High probability of gram-negative organism given aspiration risk. Continue IV Zosyn and IV azithromycin. (4) Cerebrovascular accident (CVA) Is this a current diagnosis for this admission?: Yes (5) Anemia Is this a current diagnosis for this admission?: Yes (6) Do not resuscitate Is this a current diagnosis for this admission?: Yes - Time Time Spent with patient: 15-24 minutes
[2017-03-21] MEDS: MORPHINE SULFATE 10 MG/ML INJ IV PRN ×3 (12:00→22:04)
[2017-03-21] MEDS: LORAZEPAM INJ 2 MG/1 ML VIAL IV PRN (13:19)
--- NOTE | 2017-03-21 13:36 | Progress Note ---
Provider Note Provider Note: Follow up Palliative Care visit : 10:00- 10:40 Am 03/21/17 Met with patient, his and his daughter. Mr. Mast appears very weak and frail, still on Bipap with several unsuccessful attempts to change to oxygen per mask or cannula. Mrs. Mast says patient occasionally seems to know her or the children, but doesnt try to respond, He moves about some independently and even turned over an IV pole last night. She is exhausted from staying in the hospital and still wants to take him home but is aware she cannot manage Bipap at home. Spouse tells me that the staff is starting to give low dose morphine. I explained that this medication will actually help him relax and breath better, giving him a better chance of coming off Bipap. She thought it was being given for end of life care only. Her daughter arrived during my visit and discussed with me that the children do not think spouse will be able to care for him at home and they would prefer he be transferred to the hospice care center in [place]. We had discussed that on Saturday and family was in favor of that then, but wanted to see if antibiotics and steroids would help. Patient remains in bed with Bipap, rhonchi audible in lungs, eyes open occasionally but no response to my questions. He is pale , quiet and appears comfortable at present. No PO intake. Blood pressure stable, pulse rate stable but respiratory rate remains in 30's even after low dose morphine. Patients many comorbid conditions of cerebral palsy, CVA, Aspiration pneumonias now and in the past have led family to want comfort care for him rather than aggressive care. is on board with this philosophy, but of course this is more difficult for her. Support offered to her in this difficult time. I will ask hospice liason to visit , to send records to hospice care center and to offer bed if available and family ready to transfer. I feel sure spouse will want to try weaning from Bipap again today with morphine on board to relieve dyspnea and anxiety. Appreciate opportunity to participate in care and will follow. Liason notified to contact family and care center. patient probably will have to be off Bipap for transfer to ambulance. Total 35 min spent with patient and family today.
[2017-03-21] MEDS ORDERED: MORPHINE SULFATE 10 MG/ML INJ IV ONE (14:37)
[2017-03-22] MEDS: IPRATROPIUM/ALBUTEROL 0.5-2.5 MG/3 ML AMPUL NEB SCH ×2 (02:05→08:46)
[2017-03-22] MEDS: MORPHINE SULFATE 10 MG/ML INJ IV PRN ×3 (02:18→12:19)
[2017-03-22] MEDS: LORAZEPAM INJ 2 MG/1 ML VIAL IV PRN ×2 (03:55→13:22)
[2017-03-22] MEDS: PIPERACILLIN SODIUM/TAZOBACTAM 3.375 GM in NORMAL SALINE 100 ML IV SCH ×2 (05:24→12:19)
[2017-03-22 08:38] VITALS: BP 144/65
--- NOTE | 2017-03-22 08:41 | PDOC DISCHARGE SUMMARY ---
General - Admit/Disc Date/PCP Admission Date/Primary Care Provider: 03/17/17 01:34 HELENA THORPE MD Discharge Date: 03/22/17 - Discharge Diagnosis (1) Acute hypoxemic respiratory failure Is this a current diagnosis for this admission?: Yes (2) Sepsis Is this a current diagnosis for this admission?: Yes (3) Pneumonia Is this a current diagnosis for this admission?: Yes (4) Cerebrovascular accident (CVA) Is this a current diagnosis for this admission?: Yes (5) Anemia Is this a current diagnosis for this admission?: Yes (6) Do not resuscitate Is this a current diagnosis for this admission?: Yes - Additional Information Resuscitation Status: Do Not Resuscitate Discharge Diet: As Tolerated Home Medications: Morphine Sulfate [Morphine 10 mg/ml Inj] 2 mg IV Q2HP PRN vial 03/22/17 History of Present Illness Patient complains of: Altered mental status History of Present Illness: AMBROSE MAST is a 81 year old male with complex past medical history of cerebral palsy, CVA, recurrent aspiration pneumonia, dementia and bedbound state. He been in his usual state of health until approximately 6 hours prior to presentation having upper airway sounds concerning for aspiration and seizure -like activity. EMS found him unresponsive with a blood pressure of 64/46 with pulse oximetry in the 60s. In the emergency room he is found to have bilateral pneumonia, acute respiratory failure, metabolic acidosis he started on BiPAP, empiric antibiotics and IV fluids and referred to the hospitalist for admission. Patient's is at bedside verifying no aggressive measures with intubation, central line placement or pressors. Hospital Course Hospital Course: Mr. Mast is an 81-year-old gentleman that has become severely debilitated over the past years secondary to recurrent strokes presented with altered mental status and was found to have hypoxemic respiratory failure related to pneumonia. Patient had respiratory support in the form of noninvasive ventilation with BiPAP during hospitalization. He was initially treated with broad-spectrum IV antibiotics. His condition only minimally improved. He was never able to take oral intake. He was never able to come off significant respiratory support. After several days extensive family discussions were held with patient's and children and patient was eventually made comfort measures only. Patient at time of discharge is comfortable on IV morphine and oxygen by facemask. He has been accepted to inpatient hospice. Physical Exam Vital Signs: Temp Pulse Resp BP Pulse Ox 98.1 F 72 20 144/67 H 93 03/22/17 04:06 03/22/17 06:51 03/22/17 04:06 03/22/17 04:06 03/22/17 04:06 Intake & Output 03/21/17 03/22/17 03/23/17 06:59 06:59 06:59 Intake Total 900 1067 Output Total 1550 1400 Balance -650 -333 Weight 60.4 kg 61.7 kg GENERAL: No acute distress HEENT: Conjunctiva clear, nonicteric, moist mucous membranes, no JVD, midline trachea RESPIRATORY: Bilateral wheezes/rhonchi, good air excursion CARDIAC: Regular rate and rhythm, no murmurs/gallops/rubs ABDOMEN: Soft, nondistended, nontender, positive bowel sounds, no rebound, no guarding EXTREMETIES: No edema, cyanosis, clubbing NEUROLOGIC: Minimally responsive, nonverbal, diffuse contractures SKIN: No rash, wounds Results Laboratory Results: 03/19/17 05:53 03/19/17 05:53 03/17/17 03/17/17 03/17/17 05:09 05:09 11:32 Creatine Kinase 205 H 582 H CK-MB (CK-2) 2.59 Troponin I < 0.012 03/17/17 03/17/17 03/17/17 11:32 17:32 17:32 Creatine Kinase 688 H CK-MB (CK-2) 5.14 H 6.07 H Troponin I < 0.012 < 0.012 Impressions: Chest X-Ray 03/17/17 00:00 IMPRESSION: WORSENING MULTIFOCAL AIRSPACE DISEASE. Abdomen X-Ray 03/17/17 02:40 IMPRESSION: GENERALIZED ILEUS. Qualifiers PATEINT BEING DISCHARGED WITH ANY OF THE FOLLOWING DIAGNOSIS?: No Plan Discharge Plan: Discharge to inpatient hospice facility. Time Spent: Greater than 30 Minutes
[2017-03-22] MEDS: METHYLPREDNISOLONE INJ 40 MG/1 ML SDV IV SCH (09:36)
[2017-03-22] MEDS: LEVETIRACETAM 500 MG/NACL-ISO 500 MG/100 ML RTUPB IV SCH (09:37)
[2017-03-22] MEDS: AZITHROMYCIN 500 MG in DEXTROSE 5%-WATER 250 ML IV SCH (10:14)
== END 2017-03-22 13:43 | disposition hospice, inpatient (51) | DRG 871 ==
LOC: ER 23:22 → EH 03-17 01:34 → UNDOADMIN 03-17 01:59 → EH 03-17 01:59 → 3S 03-17 04:08
PROVIDERS: ADMIT Family Medicine; ATTEND Family Medicine
PROC: 5A09557 Assistance with Respiratory Ventilation, Greater than 96 Consecutive Hours, Continuous Positive Airway Pressure (ICD-10-PCS; 2017-03-17)
PROC: 30233N1 Transfusion of Nonautologous Red Blood Cells into Peripheral Vein, Percutaneous Approach (ICD-10-PCS; principal; 2017-03-19)
DX: A41.9 Sepsis, unspecified organism (principal); J18.9 Pneumonia, unspecified organism; R65.21 Severe sepsis with septic shock; G93.41 Metabolic encephalopathy; J96.01 Acute respiratory failure with hypoxia; K56.7 Ileus, unspecified; E87.4 Mixed disorder of acid-base balance; I10 Essential (primary) hypertension; G40.909 Epilepsy, unspecified, not intractable, without status epilepticus; F03.90 Unspecified dementia, unspecified severity, without behavioral disturbance, psychotic disturbance, mood disturbance, and anxiety; Z51.5 Encounter for palliative care; G80.9 Cerebral palsy, unspecified; D64.9 Anemia, unspecified; Z66 Do not resuscitate; Z86.73 Personal history of transient ischemic attack (TIA), and cerebral infarction without residual deficits; Z87.01 Personal history of pneumonia (recurrent); Z74.01 Bed confinement status; Z82.3 Family history of stroke; Z82.49 Family history of ischemic heart disease and other diseases of the circulatory system
CPT/HCPCS: 36415; 36430; 36600; 51702; 71010; 74020; 80048; 80053; 81001; 82550; 82553; 82607; 82746; 82803; 83605; 83735; 84100; 84484; 85025; 85362; 85384; 85610; 85730; 86850; 86900; 86901; 86920; 87040; 87086; 87493; 93005; 93010; 94660; 96365; 96367; 99291; J0456; J1953; J2060; J2270; J2543; J2920; J3370; J3490; J7030; J7060; J7620; P9016